=== PATIENT | male | born 1940 | race Caucasian/White ===

== ENCOUNTER 2017-06-24 11:54 | Inpatient (IN) | payer MEDICARE ==
[2017-06-24] MEDS ORDERED: cefTRIAXone\\ROCEPHIN 2 GM in Sodium Chloride 0.9% 100 ML IVPB SCH (13:00)
[2017-06-24 13:13] LABS: Anion Gap 11 mmol/L (10-20); BUN (Urea Nitrogen) 66 mg/dL (8.4-25.7); Calc. Creatinine Clearance 0 mL/min (70-130); Calcium 10.8 mg/dL (7.8-10.44); Carbon Dioxide 22 mmol/L (23-31); Chloride 105 mmol/L (98-107); Estimated GFR-MDRD 23; Glucose 162 mg/dL (83-110); Potassium 4.2 mmol/L (3.5-5.1); Sodium 134 mmol/L (136-145)
[2017-06-24 13:17] LABS: CKMB 1.4 ng/mL (0-6.6); Troponin I 0.021 ng/mL (< 0.028)
[2017-06-24] MEDS ORDERED: Ondansetron ODT 4 MG TAB PO PRN (15:11)
[2017-06-24] MEDS ORDERED: Acetaminophen 325 MG TAB PO PRN (15:11)
[2017-06-24] MEDS ORDERED: Dextrose 50% Abboject 50 ML SYRINGE SLOW IVP PRN (15:11)
[2017-06-24] MEDS ORDERED: HYDROcodone/Acetaminophen 10/325 mg Tablet PO PRN (15:11)
[2017-06-24] MEDS ORDERED: HYDROcodone/Acetaminophen 5/325 mg Tablet PO PRN (15:11)
[2017-06-24] MEDS ORDERED: Dextrose 5% in Water 1,000 ML IV PRN (15:11)
[2017-06-24] MEDS ORDERED: Benzonatate 100 MG CAP PO PRN (16:00)
[2017-06-24] MEDS ORDERED: Sucralfate 1 GM/10 ML UDCUP PO PRN (16:00)
[2017-06-24] MEDS ORDERED: Lorazepam 1 MG TAB PO PRN (16:00)
[2017-06-24] MEDS ORDERED: guaiFENesin ER 600 MG TAB PO PRN (16:00)
[2017-06-24 16:48] LABS: Troponin I 0.023 ng/mL (< 0.028)
[2017-06-24 19:58] LABS: Troponin I 0.019 ng/mL (< 0.028)
[2017-06-24] MEDS ORDERED: Insulin Regular 300 UNITS/3 ML VIAL ONE (21:56)
[2017-06-25 04:49] LABS: ALT (SGPT) 124 U/L (8-55); AST (SGOT) 79 U/L (5-34); Albumin 2.8 g/dL (3.4-4.8); Alkaline Phosphatase 144 U/L (40-150); Anion Gap 13 mmol/L (10-20); BUN (Urea Nitrogen) 66 mg/dL (8.4-25.7); Bilirubin, Total 0.5 mg/dL (0.2-1.2); Calc. Creatinine Clearance 0 mL/min (70-130); Calcium 10.4 mg/dL (7.8-10.44); Carbon Dioxide 20 mmol/L (23-31); Chloride 107 mmol/L (98-107); Estimated GFR-MDRD 25; Globulin 2.6 g/dL (2.4-3.5); Glucose 169 mg/dL (83-110); Potassium 4.1 mmol/L (3.5-5.1); Protein, Total 5.4 g/dL (5.8-8.1); Sodium 136 mmol/L (136-145)
[2017-06-25 04:57] LABS: Band 1 % (5-11); Eosinophils 1 % (0-10); Hemoglobin 10.4 g/dL (14.0-18.0); Lymphocytes 14 % (21-51); MDiff Complete? YES; Mean Corpuscular HGB CONC 33.6 g/dL (32.0-36.0); Mean Corpuscular Hemoglobin 32.5 pg (27.0-31.0); Mean Corpuscular Volume 96.6 fl (80.0-94.0); Mean Platelet Volume 7.9 fL (7.4-10.4); Monocytes 14 % (0-10); Neutrophil 70 % (42-75); PLT Morphology Comment Appears Decreased; Platelet Count 109 thou/uL (130-400); RBC Distribution Width 12.8 % (11.5-14.5); White Blood Cell (WBC) Count 8.3 thou/uL (4.8-10.8)
[2017-06-25] MEDS: Sodium Chloride 0.9% 1,000 ML IV SCH ×3 (06:22→17:53)
[2017-06-25] MEDS: cefTRIAXone\\ROCEPHIN 2 GM in Sodium Chloride 0.9% 100 ML IVPB SCH ×2 (06:22→18:05)
[2017-06-25] MEDS ORDERED: Icosapent Ethyl [Vascepa] 1 GM PO SCH (08:00)
[2017-06-25 09:18] VITALS: BMI 32.5
[2017-06-25] MEDS: Apixaban 5 MG TAB PO SCH ×3 (10:46→21:10)
[2017-06-25] MEDS: Atorvastatin Calcium 40 MG TAB PO SCH ×2 (10:46→21:10)
[2017-06-25] MEDS: Tamsulosin HCl 0.4 MG CAP PO SCH ×2 (10:47→21:10)
[2017-06-25] MEDS: Levothyroxine Sodium 75 MCG TAB PO SCH (10:47)
[2017-06-25] MEDS: Amiodarone 200 MG TAB PO SCH (10:48)
[2017-06-25] MEDS: Dutasteride 0.5 MG CAP PO SCH (10:49)
[2017-06-25] MEDS: Fluticasone Propionate Nasal Spray 16 gm Bottle NASAL SCH (10:50)
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
--- NOTE | 2017-06-25 13:12 | PDOC.PN ---
- Subjective Encounter Start Date: 06/25/17 Encounter Start Time: 11:20 Pt still holding down in ER. All home meds restarted, pt feeling better, but still weak. to transfer to a Tele bed later today. No F/C, no N/V/D/C, no CP or SOB. no family a bedside at time of visit. tolerating po fine. 10 point ROS performed and neg for all systems except as above - Objective MAR Reviewed: Yes Vital Signs & Weight: Vital Signs (12 hours) Temp Pulse Resp BP Pulse Ox 06/25/17 09:19 97.7 F 79 24 H 120/75 96 06/25/17 08:00 97.7 F 79 24 H Weight Weight 240 lb 1.334 oz Result Diagrams: 06/25/17 04:06 06/25/17 04:06 Additional Labs: Accuchecks 06/25/17 06/24/17 06/24/17 08:23 21:54 19:23 POC Glucose 178 H 190 H 183 H Radiology Reviewed by me: Yes EKG Reviewed by me: Yes Phys Exam - Physical Examination Constitutional: NAD HEENT: PERRLA, moist MMs, sclera anicteric, oral pharynx no lesions Neck: no nodes, no JVD, supple, full ROM Respiratory: no wheezing, no rales, no rhonchi, clear to auscultation bilateral Cardiovascular: RRR, no significant murmur, no rub Gastrointestinal: soft, non-tender, no distention, positive bowel sounds Musculoskeletal: edema present Neurological: non-focal, normal sensation, moves all 4 limbs Lymphatic: no nodes Psychiatric: normal affect, A&O x 3 Skin: no rash, normal turgor, cap refill <2 seconds Dx/Plan (1) UTI (urinary tract infection) Status: Acute Comment: GNR on culture. WBC normal, afebrile, no urinary symptoms, CCM, streamline to po when ID and sens available (2) Sepsis Code(s): A41.9 - SEPSIS, UNSPECIFIED ORGANISM Status: Acute Comment: due to GNR pending ID and sensitivity (3) History of ventricular tachycardia Code(s): Z86.79 - PERSONAL HISTORY OF OTHER DISEASES OF THE CIRCULATORY SYSTEM Status: Chronic Comment: on Torpol XL 100mg TIS, rate normal normnal rhythm. CCM. AICD in place (4) CAD (coronary artery disease) Code(s): I25.10 - ATHSCL HEART DISEASE OF [place] CORONARY ARTERY W/O ANG PCTRS Status: Chronic Qualifiers: Coronary Disease-Associated Artery/Lesion type: [place] artery [place] vs. transplanted heart: [place] heart Associated angina: without angina Qualified Code(s): I25.10 - Atherosclerotic heart disease of [place] coronary artery without angina pectoris (5) Paroxysmal A-fib Code(s): I48.0 - PAROXYSMAL ATRIAL FIBRILLATION Status: Chronic Comment: in NSR, on amio, toprol XL (6) COPD (chronic obstructive pulmonary disease) Status: Chronic Qualifiers: COPD type: unspecified COPD Qualified Code(s): J44.9 - Chronic obstructive pulmonary disease, unspecified (7) HTN (hypertension) Code(s): I10 - ESSENTIAL (PRIMARY) HYPERTENSION Status: Chronic Qualifiers: Hypertension type: essential hypertension Qualified Code(s): I10 - Essential (primary) hypertension Comment: low nad admit, better now, slowly restart home BP meds (8) Prostate CA Code(s): C61 - MALIGNANT NEOPLASM OF PROSTATE Status: Chronic Comment: flmax and avodart (9) CKD (chronic kidney disease) stage 3, GFR 30-59 ml/min Code(s): N18.3 - CHRONIC KIDNEY DISEASE, STAGE 3 (MODERATE) Status: Acute (10) HLD (hyperlipidemia) Code(s): E78.5 - HYPERLIPIDEMIA, UNSPECIFIED Status: Chronic Qualifiers: Hyperlipidemia type: unspecified Qualified Code(s): E78.5 - Hyperlipidemia , unspecified (11) DM2 (diabetes mellitus, type 2) Status: Chronic Qualifiers: Diabetes mellitus complication status: with circulatory complication Diabetes mellitus complication detail: with other circulatory complications Diabetes mellitus prison insulin use: with local intermodal truck driver use Qualified Code(s) : E11.59 - Type 2 diabetes mellitus with other circulatory complications; Z79.4 - local company intermodal truck driver (current) use of insulin; Z79.4 - [facility] (current) use of insulin ; Z79.4 - local company intermodal truck driver (current) use of insulin; Z79.4 - [facility] (current) use of insulin - Plan cont current plan of care, continue antibiotics, PT/OT, out of bed/ambulate * .
[2017-06-25] MEDS ORDERED: Ipratropium Oral Inhaler (200 INHALATIONS) INH PRN (13:17)
--- NOTE | 2017-06-25 15:49 | HP ---
PRIMARY CARE PHYSICIAN: Jacinto Amato M.D. PRIMARY SALES FLOOR TEAM MEMBER: Colton Palmer M.D. PRIMARY CHARGE RN: Dr. Watkins at [facility]. DATE OF ADMISSION: 06/24/2017 TIME OF SERVICE: 1500. CHIEF COMPLAINT: Transferred from the [place] ER for urinary tract infection with sepsis. HISTORY OF PRESENT ILLNESS: Mr. Madsen is a 77-year-old white male with history of chronic atrial fibrillation, COPD, coronary artery disease, prostate cancer, chronic kidney disease, hypertension, d iabetes, has thyroid cancer and known cardiorenal syndrome due to causing his chronic kidney disease who presented initially to the [place] ER on 06/23/2016. He had been 2 days before ambulating around his house, on a couple of occasions, he sat down and felt too weak to get up, but was able to get up with some assistance and managed to get around. Ultimately, he sat down later on 06/22/2017 and at that point was too weak to get up and stayed [facility] recl[facility] the rest of the night. He was found by family the next day and taken to [place] [facility] on 06/23/2017 for evaluation. Mak p there showed an elevated white blood cell count and signs of urinary tract infection. We had no be ds available, so was kept there in the [place] ER after a dose of Rocephin and some fluids for s epsis. Lactic acid at that time was normal at 1.3. We finally had a bed available at our ER yesterday after noon. The patient was transferred to our emergency department for evaluation. Labs on arrival to our emergency department showed creatinine of 2.67, which was slightly better than the day before. Rest of electrolytes are fairly normal. BNP was slightly elevated at 127 and tropo barry I was normal at 0.021 with MB fraction of 1.4. On presentation to the outside ER, his troponin w as in the 0.04, 0.03, 0.039 range. White count here had normalized from 13.4-10.7. The remainder of his labs remained fairly normal. H e had no bands present. We were subsequently called for admission for UTI with sepsis. On my evaluation, the patient was stable. Family was hypervigilant, very concerned that his troponin was mildly not normal. The patient was feeling fine, sitting up in bed eating, and had no further t emperature. Reportedly, he had a temperature of 101 there and low blood pressure, but has been afebr ile here. He had no other current complaints. Specifically, denied chills or rigors, no nausea, vomiting, diar sher or constipation. Just felt weak. PAST MEDICAL HISTORY: 1. CHF, unknown type. 2. Atrial fibrillation, paroxysmal. 3. History of ventricular tachycardia, status post AICD placement. He follows up with Dr. Watkins, an electrophysiology in [place]. 4. History of prostate cancer with history of CKD secondary to cardiorenal syndrome. 5. Hypertension. 6. Hyperlipidemia. 7. History of thyroid cancer, status post partial thyroidectomy. PAST SURGICAL HISTORY: 1. Pacer/AICD. Has been replaced 5 times, so he has had 6 total pacemakers/AICD. 2. Thyroidectomy in 1962. 3. Appendectomy and tonsillectomy remotely. HOME MEDICATIONS: 1. Eliquis 2.5 mg p.o. q.a.m. and 5 mg p.o. q.p.m. 2. Advair 1 puff b.i.d., dose unknown. 3. Vascepa 1 gram b.i.d. 4. Losartan 25 mg p.o. q.a.m. 5. Pantoprazole 40 mg p.o. b.i.d. 6. Flomax 0.4 mg p.o. q.a.m. 7. Levothyroxine 75 mcg q.a.m. 8. Avodart 0.5 mg p.o. q.a.m. 9. Toprol-XL 100 mg p.o. t.i.d. 10. Amiodarone 200 mg p.o. q.a.m. 11. Lipitor 80 mg p.o. q.a.m. 12. Bethanechol 25 mg p.o. t.i.d. 13. Spironolactone 25 mg p.o. q.a.m. 14. Atrovent rescue inhaler 2 puffs q.4-6 h. as needed for wheezing, congestion or DuoNeb 3 mL 3-4 t imes a day as needed. 15. Mucinex, he takes 600 mg tablets 1-2 tablets p.o. b.i.d. starting at a high dose with thicker mu cus. 16. Benzonatate 100 mg p.o. t.i.d. p.r.n. cough. 17. Levemir sliding scale. 18. NovoLog sliding scale. 19. Bumex 1 mg p.o. p.r.n. 2-5 pound weight increase. 20. Nasonex 50 mcg 1 spray each nostril daily. 21. Carafate 1 gram p.o. b.i.d. until pain behind the heart goes away. 22. Tylenol #3 one tablet q.4 h. p.r.n. pain. 23. Ativan 1 mg p.o. t.i.d. p.r.n. anxiety. ALLERGIES: To EPHEDRINE and EPINEPHRINE. FAMILY HISTORY: Negative for clotting or bleeding disorder, no immune dysfunction. SOCIAL HISTORY: Negative for habits x3. His daughter takes primary care of his medical issues. REVIEW OF SYSTEMS: A 10-point review of systems was performed and negative for all other systems exc ept stated as per HPI. PHYSICAL EXAMINATION: VITAL SIGNS: Temperature current 98.4, pulse 81, blood pressure 105/64, respiratory rate 20, satting 90% on room air. GENERAL: He is awake. He is alert. He is oriented x3. He is a well-developed, severely obese whit e male, appears to be in no acute distress. HEENT: Normocephalic and atraumatic. Pupils equal, reactive bilaterally, mucous rhythm moist. No v isible lesion, no thrush. NECK: Supple with no lymphadenopathy, JVD or thyromegaly with normal carotid upstrokes. I do not ap preciate bruits. LUNGS: Clear anteriorly. There are no wheezes, no rales, no rhonchi. No prolonged expiratory phase . He has good air movement. Symmetrical chest excursion. CARDIOVASCULAR: Regular. He has normal S1, S2. He has a faint holosystolic murmur best heard at th e apex. He has no rubs. ABDOMEN: Severely obese. It is nontender, nondistended with no rebound, rigidity, or guarding. He has good bowel sounds. I cannot palpate internal organs. EXTREMITIES: No cyanosis or clubbing. He has bilateral lower extremity edema from the mid tibial le ovidio down, 2+ pitting. I cannot palpate pulses, but his feet are warm. SKIN: Otherwise warm, moist and well perfused. He has no other rashes or lesions. NEUROLOGIC: Cranial nerves II-XII are grossly intact. He has no focal deficits, normal speech, 4/5 strength in all 4 of his extremities. MUSCULOSKELETAL: Normal to inspection. He has no joint inflammation or redness and no palpable effu sions. LABORATORY DATA: Sodium 134, potassium 4.2, chloride 105, bicarb 22, BUN 66, creatinine 2.67, glucos e 102 and calcium of 10.8. Liver function normal except for an AST of 65, ALT of 102, total protein 5.6, albumin 3.0. Her CBC showed white count normal now at 10.7, hemoglobin 10.1, hematocrit of 29.7 , platelet count 205,000, 80% granulocytes, 10% lymphocytes. Her chest x-ray showed cardiomegaly and mild pulmonary vascular congestion. I suspect is chronic. Urinalysis showed greater than 50 white blood cells, 7-10 red cells, large leukocyte esterase, and 1+ bacteria. Cardiac biomarkers here were negative, BNP was 127.7. ASSESSMENT AND PLAN: 1. Urinary tract infection. The patient has improved on Rocephin. We will continue. Urine culture was submitted by the [place] [facility], we will follow up on the results. 2. Sepsis: Patient did meet criteria initially with a fever, low blood pressure, elevated white blo od cell count, and presumed bacterial infection. He was not severe. His lactate was normal. Today, all his indices were corrected. The sepsis was resolved. We will keep him on gentle IV fluid hydra tion tonight and support his greater than 21 BUN to creatinine ratio and will admit to inpatient. 3. History of chronic kidney disease with acute kidney injury. Normal creatinine is normally around 1.8-1.9. So, we are about 50%. We will ask Dr. Palmer to evaluate. 4. History of paroxysmal atrial fibrillation, ventricular tachyarrhythmias, coronary artery disease. The patient sees a Dr. Raysa Watkins in [place]. The ER spent 2-3 hours trying to contact him and was unable to get hold of him. We will attempt tomorrow. 5. Hypertension: Due to his recent hypotension, we will hold most of his medications. 6. History of ventricular tachyarrhythmia: We will resume his Toprol-XL 100 mg p.o. t.i.d. 7. Diabetes mellitus type 2, he is on Levemir sliding scale and NovoLog sliding scale. We will use a moderate NovoLog correctional scale for now and get his regular medicines started once I have that available. 8. Hyperlipidemia, on Lipitor. We will continue. 9. History of prostate cancer, on Avodart and Flomax. We will continue. 10. History of thyroid cancer, now in surgical remission. 11. We will hold the losartan, spironolactone for now as the patient has borderline blood pressure. We will get him gently hydrated. Follow up on renal recommendations. The patient will be admitted inpatient.
[2017-06-25] MEDS ORDERED: Polyethylene Glycol 3350 17 GM Packet PO PRN (17:41)
[2017-06-25] MEDS: HumaLOG 300 UNITS/3 ML VIAL SC PRN (17:52)
[2017-06-26] MEDS: Sodium Chloride 0.9% 1,000 ML IV SCH ×2 (01:29→22:50)
[2017-06-26] MEDS: Levothyroxine Sodium 75 MCG TAB PO SCH (05:18)
[2017-06-26 05:49] LABS: #Eosinphils 0.1 thou/uL (0.0-0.7); #Lymphocytes 1.1 thou/uL (1.20-3.40); #Monocytes 0.8 thou/uL (0.11-0.59); #Neutrophils 4.7 thou/uL (1.40-6.50); %Basophils 0.7 % (0.0-1.0); %Eosinophils 1.1 % (0.0-10.0); %Lymphocytes 16.3 % (21.0-51.0); %Monocytes 11.8 % (0.0-10.0); %Neutrophils 70.1 % (42.0-75.0); Hemoglobin 10.5 g/dL (14.0-18.0); Mean Corpuscular HGB CONC 32.7 g/dL (32.0-36.0); Mean Corpuscular Hemoglobin 32.1 pg (27.0-31.0); Mean Corpuscular Volume 98.3 fl (80.0-94.0); Mean Platelet Volume 7.7 fL (7.4-10.4); Platelet Count 133 thou/uL (130-400); RBC Distribution Width 12.9 % (11.5-14.5); Red Blood Cell (RBC) Count 3.26 mill/uL (4.70-6.10); White Blood Cell (WBC) Count 6.7 thou/uL (4.8-10.8)
[2017-06-26 06:13] LABS: Anion Gap 11 mmol/L (10-20); BUN (Urea Nitrogen) 58 mg/dL (8.4-25.7); Calc. Creatinine Clearance 43 mL/min (70-130); Calcium 10.7 mg/dL (7.8-10.44); Carbon Dioxide 22 mmol/L (23-31); Chloride 111 mmol/L (98-107); Estimated GFR-MDRD 30; Glucose 155 mg/dL (83-110); Potassium 4.6 mmol/L (3.5-5.1); Sodium 139 mmol/L (136-145)
[2017-06-26] MEDS: HumaLOG 300 UNITS/3 ML VIAL SC PRN ×2 (06:23→16:52)
--- NOTE | 2017-06-26 08:50 | PRG ---
DATE OF SERVICE: 06/26/2017 RENAL MEDICINE SUBJECTIVE: Mr. Madsen is a 77-year-old white male with known history of chronic renal failure sec ondary to cardiorenal syndrome, was admitted for a UTI. Patient is currently on IV antibiotics. We were consulted for his chronic renal failure. Initial creatinine was noted at 2.53. He is ARB and d iuretics have been placed on hold. Creatinine, this morning, is back to 2.1, which is near baseline. He voices no new complaints. He denies any chest pain, shortness of breath, nausea, or vomiting. PHYSICAL EXAMINATION: VITAL SIGNS: Blood pressure is 134/88, heart rate 75, respiratory rate 20, temperature 97.5, pulse o ximetry is 95%. GENERAL EXAM: Awake, alert, comfortable, not in distress. SKIN: Adequate turgor. HEENT: He has pinkish conjunctivae, anicteric sclerae. NECK: No neck mass, no carotid bruits, no JVD. CHEST: No deformities. LUNGS: Clear breath sounds. No wheezing, no crackles. HEART: Normal sinus rhythm. No murmurs, no gallops, no rubs. ABDOMEN: Globular, soft, nontender. EXTREMITIES: No edema. MEDICATIONS: Medications of 06/26/2017 were reviewed. LABORATORY DATA: Laboratories of 06/26/2017, white count 6.7, hemoglobin 10.5, sodium 139, potassium 4.6, chloride 111, carbon dioxide 22, BUN 58, creatinine 2.14, glucose 155, calcium 10.7, magnesium 2. ASSESSMENT AND PLAN: 1. Acute kidney injury on top of his chronic renal failure, stabilizing renal function. Creatinine improved from 2.5 to most recent value of 2.1. He is near baseline GFR and creatinine. No other com plaints. No indication for any dialytic intervention. 2. Urinary tract infection, currently on IV antibiotics. Overall, I agree with current management. Patient has gentle volume repletion. Recheck basic metabolic panel in a.m.
[2017-06-26] MEDS ORDERED: Losartan 25 MG TAB PO SCH (09:30)
[2017-06-26] MEDS: Apixaban 5 MG TAB PO SCH ×2 (10:00→22:42)
[2017-06-26] MEDS: Fluticasone Propionate Nasal Spray 16 gm Bottle NASAL SCH ×2 (10:00→10:09)
[2017-06-26] MEDS: Amiodarone 200 MG TAB PO SCH (10:00)
[2017-06-26] MEDS: Dutasteride 0.5 MG CAP PO SCH (10:00)
--- NOTE | 2017-06-26 14:18 | PDOC.PN ---
- Subjective Encounter Start Date: 06/26/17 Encounter Start Time: 09:00 Pt feeling better, up and walking in the abreu about the smae as at home. PT has recommended HHC with PT, CM consulted Sugars good, HR good, Creatinine normalizing, Dr Palmer wants to keep one more night no F/C, no n/V/D/C, no CP or SOB 10 point ROS performed and neg for all systems except as above. - Objective MAR Reviewed: Yes Vital Signs & Weight: Vital Signs (12 hours) Temp Pulse Pulse Pulse Resp BP BP 06/26/17 11:30 97.6 F 76 14 06/26/17 10:46 85 18 06/26/17 09:02 92 75 137/75 141/74 H 06/26/17 07:32 97.6 F 76 14 06/26/17 07:28 97.5 F L 75 20 06/26/17 04:00 97.5 F L 81 18 BP Pulse Ox Pulse Ox Pulse Ox 06/26/17 11:30 136/82 95 06/26/17 10:46 96 06/26/17 09:02 96 94 L 06/26/17 07:32 95 06/26/17 07:28 134/88 95 06/26/17 04:00 128/82 96 Weight Weight 240 lb 1.334 oz I&O: 06/25/17 06/26/17 06/27/17 06:59 06:59 06:59 Intake Total 1402 Output Total 1000 Balance 402 Result Diagrams: 06/26/17 05:20 06/26/17 05:20 Additional Labs: Accuchecks 06/26/17 06/26/17 06/25/17 11:27 05:47 20:37 POC Glucose 153 H 166 H 158 H 06/25/17 17:37 POC Glucose 169 H Radiology Reviewed by me: Yes EKG Reviewed by me: Yes Phys Exam - Physical Examination Constitutional: NAD HEENT: PERRLA, moist MMs, sclera anicteric, oral pharynx no lesions Neck: no nodes, no JVD, supple, full ROM Respiratory: no wheezing, no rales, no rhonchi, clear to auscultation bilateral Cardiovascular: RRR, no significant murmur, no rub Gastrointestinal: soft, non-tender, no distention, positive bowel sounds Musculoskeletal: pulses present, edema present Neurological: non-focal, normal sensation, moves all 4 limbs Lymphatic: no nodes Psychiatric: normal affect, A&O x 3 Skin: no rash, normal turgor, cap refill <2 seconds Dx/Plan (1) UTI (urinary tract infection) Status: Acute Comment: Gay[place]-susceptible E coli. WBC normal, afebrile, no urinary symptoms, CCM, streamline to po Ampicillin QID (2) Sepsis Code(s): A41.9 - SEPSIS, UNSPECIFIED ORGANISM Status: Acute Qualifiers: Sepsis type: Escherichia coli Qualified Code(s): A41.51 - Sepsis due to Escherichia coli [E. coli] Comment: e coli as above (3) History of ventricular tachycardia Code(s): Z86.79 - PERSONAL HISTORY OF OTHER DISEASES OF THE CIRCULATORY SYSTEM Status: Chronic Comment: on Torpol XL 100mg TIS, rate normal normnal rhythm. CCM. AICD in place, interrogation negative for discharg eor tachyarrhythmia (4) CAD (coronary artery disease) Code(s): I25.10 - ATHSCL HEART DISEASE OF [place] CORONARY ARTERY W/O ANG PCTRS Status: Chronic Qualifiers: Coronary Disease-Associated Artery/Lesion type: [place] artery [place] vs. transplanted heart: [place] heart Associated angina: without angina Qualified Code(s): I25.10 - Atherosclerotic heart disease of [place] coronary artery without angina pectoris (5) Paroxysmal A-fib Code(s): I48.0 - PAROXYSMAL ATRIAL FIBRILLATION Status: Chronic Comment: in NSR, on amio, toprol XL (6) COPD (chronic obstructive pulmonary disease) Status: Chronic Qualifiers: COPD type: unspecified COPD Qualified Code(s): J44.9 - Chronic obstructive pulmonary disease, unspecified (7) HTN (hypertension) Code(s): I10 - ESSENTIAL (PRIMARY) HYPERTENSION Status: Chronic Qualifiers: Hypertension type: essential hypertension Qualified Code(s): I10 - Essential (primary) hypertension Comment: low nad admit, better now, slowly restart home BP meds (8) Prostate CA Code(s): C61 - MALIGNANT NEOPLASM OF PROSTATE Status: Chronic Comment: flmax and avodart (9) CKD (chronic kidney disease) stage 3, GFR 30-59 ml/min Code(s): N18.3 - CHRONIC KIDNEY DISEASE, STAGE 3 (MODERATE) Status: Acute Comment: back to baseline GFR (10) HLD (hyperlipidemia) Code(s): E78.5 - HYPERLIPIDEMIA, UNSPECIFIED Status: Chronic Qualifiers: Hyperlipidemia type: unspecified Qualified Code(s): E78.5 - Hyperlipidemia , unspecified (11) DM2 (diabetes mellitus, type 2) Status: Chronic Qualifiers: Diabetes mellitus complication status: with circulatory complication Diabetes mellitus complication detail: with other circulatory complications Diabetes mellitus parts counterman insulin use: with custodial use Qualified Code(s) : E11.59 - Type 2 diabetes mellitus with other circulatory complications; Z79.4 - detention (current) use of insulin; Z79.4 - intermediate school teacher (current) use of insulin ; Z79.4 - intermediate school teacher (current) use of insulin; Z79.4 - detention (current) use of insulin - Plan * .
[2017-06-26] MEDS: Atorvastatin Calcium 40 MG TAB PO SCH (22:42)
[2017-06-26] MEDS: Tamsulosin HCl 0.4 MG CAP PO SCH (22:42)
[2017-06-26] MEDS: Diabetic Tussin 200 MG/10 ML UDCUP PO PRN (22:47)
[2017-06-27 05:48] LABS: #Eosinphils 0.1 thou/uL (0.0-0.7); #Lymphocytes 1.2 thou/uL (1.20-3.40); #Monocytes 0.8 thou/uL (0.11-0.59); %Basophils 0.2 % (0.0-1.0); %Eosinophils 1.2 % (0.0-10.0); %Lymphocytes 19.9 % (21.0-51.0); %Monocytes 12.8 % (0.0-10.0); %Neutrophils 65.9 % (42.0-75.0); Hemoglobin 10.5 g/dL (14.0-18.0); Mean Corpuscular HGB CONC 32.6 g/dL (32.0-36.0); Mean Corpuscular Hemoglobin 32.4 pg (27.0-31.0); Mean Corpuscular Volume 99.2 fl (80.0-94.0); Mean Platelet Volume 7.2 fL (7.4-10.4); Platelet Count 144 thou/uL (130-400); RBC Distribution Width 12.8 % (11.5-14.5); Red Blood Cell (RBC) Count 3.23 mill/uL (4.70-6.10)
[2017-06-27] MEDS: Levothyroxine Sodium 75 MCG TAB PO SCH (05:55)
[2017-06-27 06:01] LABS: Anion Gap 11 mmol/L (10-20); BUN (Urea Nitrogen) 49 mg/dL (8.4-25.7); Calc. Creatinine Clearance 50 mL/min (70-130); Calcium 10.4 mg/dL (7.8-10.44); Carbon Dioxide 22 mmol/L (23-31); Chloride 111 mmol/L (98-107); Estimated GFR-MDRD 35; Glucose 173 mg/dL (83-110); Potassium 4.6 mmol/L (3.5-5.1); Sodium 139 mmol/L (136-145)
[2017-06-27] MEDS ORDERED: Losartan 25 MG TAB PO SCH (09:00)
--- NOTE | 2017-06-27 09:05 | PRG ---
DATE OF SERVICE: 06/27/2017 SUBJECTIVE: Mr. Madsen is a 77-year-old white male who was admitted for UTI. Seen by the [facility]al Se [facility] for acute kidney injury. Adjustment of his medication was done and he was given gentle volume repletion. Creatinine has been slowly improving over the last 2 days. He feels better this morning and voices no complaints of chest pain or shortness of breath. OBJECTIVE: VITAL SIGNS: Blood pressure is 115/59, heart rate 95, respiratory rate 22, temperature 97.9, and pul se oximetry 99%. GENERAL: The patient is noted to be awake, supine, comfortable, not in distress. SKIN: Adequate turgor. HEENT: Pinkish conjunctivae. Anicteric sclerae. NECK: No neck mass, no carotid bruits, no JVD. CHEST: No deformities. LUNGS: Clear breath sounds. No wheezing. No crackles. HEART: Normal sinus rhythm. No murmur, no gallops or rubs. ABDOMEN: Globular, soft, nontender, no masses. EXTREMITIES: No edema or deformities. MEDICATIONS: Of 06/27/2017 was reviewed. LABORATORY DATA: Of 06/27/2007, white count 6, hemoglobin 10.5, sodium 139, potassium 4.6, chloride 111, carbon dioxide 22, BUN 49, creatinine 1.85, GFR 35 mL per minute. Calcium is 10.4. ASSESSMENT AND PLAN: 1. Acute kidney injury/chronic renal failure, much improved creatinine. Creatinine 1.85 is near [place]. He currently has stage III chronic renal failure. Continue current management. Once the vicente al function has stabilized, consider resuming back his home diuretics. 2. Urinary tract infection, clinically much improved. The patient is asymptomatic. There is no ind ication for any dialytic intervention.
[2017-06-27 09:49] VITALS: TEMP 97.6
[2017-06-27] MEDS: Apixaban 5 MG TAB PO SCH (09:54)
[2017-06-27] MEDS: Amiodarone 200 MG TAB PO SCH (09:54)
[2017-06-27] MEDS: Dutasteride 0.5 MG CAP PO SCH (09:54)
[2017-06-27] MEDS: Fluticasone Propionate Nasal Spray 16 gm Bottle NASAL SCH (09:55)
[2017-06-27] MEDS: Diabetic Tussin 200 MG/10 ML UDCUP PO PRN (10:03)
[2017-06-27] MEDS: HumaLOG 300 UNITS/3 ML VIAL SC PRN (12:05)
[2017-06-27 12:09] VITALS: BP 128/70
--- NOTE | 2017-06-28 13:24 | DIS ---
DATE OF ADMISSION: 06/24/2017 DATE OF DISCHARGE: 06/27/2017 PRIMARY CARE PHYSICIAN: Jacinto Amato M.D. PHOTOLITHOGRAPHER: Colton Palmre M.D. DISCHARGE DIAGNOSES: 1. Urinary tract infection with carroll susceptible Escherichia coli. 2. Sepsis, present on admission, resolved. 3. History of ventricular tachycardia. 4. Coronary artery disease, without angina. 5. Paroxysmal atrial fibrillation. 6. Chronic obstructive pulmonary disease without acute exacerbation. 7. Essential hypertension. 8. Personal history of prostate cancer. 9. Chronic kidney disease stage 2. 10. Hyperlipidemia. 11. 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 CONSULTATIONS: Nephrology, Dr. Colton Palmer, 06/25/2017. PROCEDURES: None. HISTORY AND PHYSICAL: Mr. Madsen is a 77-year-old male with history as above who presents to our emergency department 06/24/2017 with urinary tract infection and sepsis. The patient was in normal state of health about 2 days prior to presentation. He had been ambulating around the house and a couple times felt too weak once he sat down to get back up, but was able to get up with some assistance. He sat down later on 06/22/2017. At that point, he was too weak to get up and stayed in his recliner the rest of the night. He was found by the family the next day and taken to the [facility] on 06/23/2017. The white blood cell count was elevated and had urinary tract infection. He was kept in the [facility] for a 24-hour period as they had no beds available. He did receive Rocephin. Pt was subsequently transferred here. HOSPITAL COURSE: The patient was seen and examined by me. He was placed on inpatient status for UTI and sepsis. On arrival here, sepsis had all but resolved. He is on antibiotics. Blood pressure remained normal and creatinine was elevated at 2.67 with a baseline of 1.8-1.9, so Nephrology was consulted. Overnight 06/24 to 06/25, the patient was doing well. Creatinine slightly better at 2.53. White blood cell count was normal. He is afebrile with normal vital signs. He has no other complaints. The patient was seen by Dr. Palmer who recommended to continue with gentle hydration. The patient was watched overnight. Creatinine improved down to 2.1, close to baseline. Cultures returned with carroll susceptible E. coli. He was watching in overnight. On 06/27/2017, creatinine improved to 1.85, which is around baseline. He is afebrile with good vital signs and mental status was at baseline. He is stable for discharge with outpatient followup. PHYSICAL EXAMINATION: The patient was seen and examined on the day of discharge. Discharge plan and disposition was discussed with the patient face- to-face at the bedside. DISCHARGE MEDICATIONS: Ampicillin 250 mg p.o. q.i.d. Home medication continued, 1. Eliquis 5 mg b.i.d. 2. Flomax 0.4 mg p.o. at bedtime. 3. Pantoprazole 40 mg p.o. b.i.d. 4. Losartan 25 mg daily. 5. Icosapent ethyl 1 gram p.o. b.i.d. 6. Levothyroxine 75 mcg daily. 7. Ativan 1 mg p.o. t.i.d. p.r.n. anxiety. 8. Sucralfate 1 gram b.i.d. p.r.n. indigestion. 9. Tylenol No. 3 p.r.n. 10. Mometasone 1 spray each naris daily. 11. Insulin NovoLog sliding scale. 12. Bumetanide 1 mg p.o. daily p.r.n. for 2-5 pound weight gain. 13. Guaifenesin ER 1200 mg p.o. b.i.d. p.r.n. thick mucus. 14. Levemir per home dosing q.p.m. 15. Benzonatate 100 mg p.o. t.i.d. p.r.n. cough. 16. DuoNeb 3 mL q.i.d. as needed for shortness of breath or wheezing. 17. Ipratropium HFA 2 puffs inhaled 4 times daily as needed for wheezing. 18. Spironolactone 25 mg daily. 19. Bethanechol 25 mg p.o. t.i.d. 20. Atorvastatin 80 mg p.o. at bedtime. 21. Metoprolol succinate 100 mg p.o. t.i.d. 22. Amiodarone 200 mg daily. 23. Avodart 0.5 mg daily. FOLLOWUP APPOINTMENTS: 1. Primary care physician within a week. 2. Dr. Palmer in 2 weeks. DISCHARGE CONDITION: Stable. DISPOSITION: Discharged to home with home health care with physical therapy and occupational therapy. DISCHARGE ACTIVITY: Per cardiopulmonary limits. DISCHARGE DIET: Heart healthy diabetic diet recommended. MTDD
== END 2017-06-27 12:31 | disposition home health service (06) | DRG 872 ==
LOC: ERS 11:54 → ERHOLD 16:18 → 2NO 06-25 13:37
PROVIDERS: ADMIT Internal Medicine Infectious Disease; ATTEND Internal Medicine Infectious Disease
DX: A41.51 Sepsis due to Escherichia coli [E. coli] (principal); N17.9 Acute kidney failure, unspecified; E11.59 Type 2 diabetes mellitus with other circulatory complications; I48.0 Paroxysmal atrial fibrillation; N39.0 Urinary tract infection, site not specified; I48.2 Chronic atrial fibrillation; J44.9 Chronic obstructive pulmonary disease, unspecified; C61 Malignant neoplasm of prostate; N18.3 Chronic kidney disease, stage 3 (moderate); I25.10 Atherosclerotic heart disease of native coronary artery without angina pectoris; E03.9 Hypothyroidism, unspecified; E78.5 Hyperlipidemia, unspecified; I12.9 Hypertensive chronic kidney disease with stage 1 through stage 4 chronic kidney disease, or unspecified chronic kidney disease; Z95.810 Presence of automatic (implantable) cardiac defibrillator; Z88.8 Allergy status to other drugs, medicaments and biological substances; Z95.5 Presence of coronary angioplasty implant and graft; Z87.891 Personal history of nicotine dependence; Z79.4 Long term (current) use of insulin
CPT/HCPCS: 36415; 36416; 80048; 80053; 82553; 83735; 83880; 85025; 94640; 96361; 96365; 96366; G8978-GP-CM; G8979-GP-CK; G8987-GO-CK; G8988-GO-CI; J0696; J1815; J7050; J7620

== ENCOUNTER 2017-11-13 11:11 | Outpatient (CLI) | payer MEDICARE | END 2017-11-13 11:12 | disposition home or self-care (01) | LOC: BICULT 11:11 | PROVIDERS: ATTEND Urology | DX: Z12.5 Encounter for screening for malignant neoplasm of prostate (principal); N18.9 Chronic kidney disease, unspecified; N40.1 Benign prostatic hyperplasia with lower urinary tract symptoms; Q61.3 Polycystic kidney, unspecified; N32.3 Diverticulum of bladder; R97.20 Elevated prostate specific antigen [PSA]; R35.0 Frequency of micturition; Z90.5 Acquired absence of kidney | CPT/HCPCS: 76770 ==